=== PATIENT | male | born 1965 | race African-American/Black ===

== ENCOUNTER 2019-07-16 11:37 | Emergency (ER) | payer OTHER, SELFPAY ==
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
[2019-07-16 11:39] VITALS: BP 154/92; PULSE 80; RESP 18; TEMP 35.9; O2SAT 99
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
[2019-07-16] MEDS: KETOROLAC (*BKC) 60 MG/2 ML VIAL IM (12:38)
== END 2019-07-16 14:00 | disposition home or self-care (01) ==
LOC: ANHED 13:44
PROVIDERS: Emergency Provider Emergency Medicine
DX: S16.1XXA Strain of muscle, fascia and tendon at neck level, initial encounter (principal); S39.012A Strain of muscle, fascia and tendon of lower back, initial encounter; M47.812 Spondylosis without myelopathy or radiculopathy, cervical region; V69.40XA Driver of heavy transport vehicle injured in collision with unspecified motor vehicles in traffic accident, initial encounter
CPT/HCPCS: 72110; 72125; 96372; 99284; J1885